=== PATIENT | male | born 1970 | race Caucasian/White ===

== ENCOUNTER 2020-02-28 07:57 | Outpatient (REF) | payer BC, SELFPAY ==
[2020-02-28 19:41] LABS: HCT 46.4 % (40.0-50.0); HGB 15.3 g/dL (13.5-17.5); MCH 28.7 pg (27.0-33.0); MCV 86.9 fL (80-95); MPV 11.1 fL (8.0-11.0); Platelet Count 267 10^3/uL (130-400); RBC 5.34 10^6/uL (4.36-5.78); RDW-SD 38.6 fL
[2020-02-28 20:03] LABS: Anion Gap 5.4 mmol/L (3-11); BUN 13 mg/dL (7-18); CO2 26.6 mmol/L (21.0-32.0); CREATININE 0.96 mg/dL (0.70-1.30); Calcium 8.6 mg/dL (8.5-10.1); Calculated LDL 142 mg/dL (<100); Chloride 107 mmol/L (98-107); Cholesterol 222 mg/dL (<200); Glucose 99 mg/dL (74-106); HDL Cholesterol 40 mg/dL (40-60); Sodium 139 mmol/L (136-145); Triglyceride 203 mg/dL (<150)
[2020-02-28 20:15] LABS: Hemoglobin A1C 5.6 % (<5.7)
== END 2020-02-28 08:17 ==
LOC: NCHCN 07:57
PROVIDERS: PCP Family Medicine; Visit Provider Physician Assistant
DX: I10 Essential (primary) hypertension (principal); R73.09 Other abnormal glucose; E78.5 Hyperlipidemia, unspecified; Z00.00 Encounter for general adult medical examination without abnormal findings
CPT/HCPCS: 80048; 80061; 85027; 83036

== ENCOUNTER 2021-01-27 07:49 | Outpatient (REF) | payer BC, SELFPAY ==
[2021-01-27 20:36] LABS: Hemoglobin A1C 5.1 % (<5.7)
[2021-01-27 20:39] LABS: Anion Gap 8.1 mmol/L (3-11); BUN 9 mg/dL (7-18); CO2 27.9 mmol/L (21.0-32.0); CREATININE 0.9 mg/dL (0.70-1.30); Calcium 8.7 mg/dL (8.5-10.1); Calculated LDL 126 mg/dL (<100); Chloride 107 mmol/L (98-107); Cholesterol 208 mg/dL (<200); Glucose 101 mg/dL (74-106); HDL Cholesterol 39 mg/dL (40-60); Sodium 143 mmol/L (136-145); Triglyceride 217 mg/dL (<150)
== END 2021-01-27 07:50 | disposition home or self-care (01) ==
LOC: NCHCN 07:49
PROVIDERS: PCP Family Medicine; Visit Provider Physician Assistant
DX: I10 Essential (primary) hypertension (principal); E78.5 Hyperlipidemia, unspecified; R73.09 Other abnormal glucose
CPT/HCPCS: 80048; 80061; 83036

== ENCOUNTER 2022-01-26 16:10 | Outpatient (REF) | payer BC, SELFPAY ==
[2022-01-26 15:43] LABS: Hemoglobin A1C 5.3 % (<5.7)
[2022-01-26 15:49] LABS: Anion Gap 11.6 mmol/L (3-11); BUN 9 mg/dL (7-18); CO2 26.4 mmol/L (21.0-32.0); CREATININE 0.8 mg/dL (0.70-1.30); Calcium 8.8 mg/dL (8.5-10.1); Calculated LDL 132 mg/dL (<100); Chloride 105 mmol/L (98-107); Cholesterol 205 mg/dL (<200); Estimated GFR 107.82 (mL/min/1.73m2); Glucose 102 mg/dL (74-106); HDL Cholesterol 46 mg/dL (40-60); Sodium 143 mmol/L (136-145); Triglyceride 135 mg/dL (<150)
[2022-01-27 20:00] LABS: PSA, Screening 0.4 ng/mL (<=3.5)
== END 2022-01-26 16:11 | disposition home or self-care (01) ==
LOC: NCHCN 16:10
PROVIDERS: PCP Physician Assistant; Visit Provider Physician Assistant
DX: R73.09 Other abnormal glucose (principal); E78.5 Hyperlipidemia, unspecified; I10 Essential (primary) hypertension; Z12.5 Encounter for screening for malignant neoplasm of prostate
CPT/HCPCS: 80048; 80061; 84153; 83036

== ENCOUNTER 2022-02-07 06:07 | Day surgery (SDC) | payer BC, SELFPAY ==
--- NOTE | 2022-02-07 00:41 | W.PM.DSUDISC ---
Discharge Plan Disposition Patient Disposition: HOME Condition: Good Discharge Details Attending Provider: Caden Mehta Primary Care Provider: Cholo Juárez Home Meds and New Rx's Prescriptions: Continued lisinopril 20 mg tablet 20 mg PO HS amlodipine 5 mg tablet 1 tab PO HS Label Comments: TAKE ONE TABLET BY MOUTH EVERY DAY Discontinued polyethylene glycol 3350 17 gram/dose powder 238 g PO ONCE Qty: 238 0RF Rx Instructions: take per colonoscopy instructions bisacodyl [Dulcolax (bisacodyl)] 5 mg tablet,delayed release (DR/EC) 5 mg PO ONCE Qty: 4 0RF Rx Instructions: take per colonoscopy instructions Discharge Instructions Instructions: Diverticulosis (DC), Colorectal Polyps (DC) Additional Instructions: 1. If tolerated, consume a soft, low fiber diet for 1-2 days. [address] Do not drive, drink alcohol, operate machinery, make critical decisions, or do activities that require coordination or balance for 24 hours. 3. Because air was put into your colon during the procedure, expelling air from your rectum (passing gas or farting) is normal. 4. You may not have a bowel movement for 1-3 days because of the colonoscopy prep. This is normal. 5. Go directly to the emergency room if you notice any of the following: Develop chills (warm to touch), or if you have a thermometer and your temperature is above 101 Difficulty breathing or difficultly swallowing Persistent vomiting Severe abdominal pain, other than gas cramps Severe chest pain Black, tarry stools Any bleeding ? exceeding one tablespoon 6. Call your physician if the site where your intravenous was started becomes red, swollen, painful, and warm to touch. 7. Your physician has reviewed your pre-procedure medications. Please continue to take those medications as previously ordered. You will be given specific information/education regarding any changes to your medications before leaving. Activity:: Activity as Tolerated Diet:: As Tolerated Discharge Orders Discharge Orders: Discharge Order (Routine); Ordered 02/07/22 Ordered By: Caden Mehta DS: Diagnosis Discharge Diagnosis (1) Colorectal polyps: Status: Acute Asessment and Plan: My office will contact you with biopsy results
--- NOTE | 2022-02-07 00:43 | W.COLOREPORT ---
Colonoscopy Report Date of procedure: 02/07/22 Pre-op diagnosis general: Screening colonoscopy Post-op diagnosis procedure note: other (Diverticulosis, colorectal polyps) Procedure: Screening colonoscopy Surgeon: Caden Mehta Anesthesia Type: General:No Airway Estimated blood loss (mL): 20 Pathology: other (Polyp at 40 cm, polyp at 50 cm) Disposition: same day Indications: Rahul is a 51-year-old male presenting for his first screening colonoscopy Prep: Miralax/Dulcolax Procedure Start Time: 07:55 Procedure End Time: 08:15 Retraction Time: 14 Findings: Polyp at 40 cm, polyp at 50 cm Procedure Description: After the induction of monitored anesthetic care, and with the patient in left lateral decubitus position, I began by performing an external anorectal exam.? Perineum and skin were normal, as was the anal verge.? There was mild evidence of external hemorrhoids with fibrosed skin tags.? Next, I performed a digital rectal exam.? I did not appreciate any abnormal findings.? Next, I advanced a colonoscope into the rectal vault.? I performed retroflexion.? I did not see signs of pathologic internal hemorrhoids.? Using insufflation, I then advanced the colonoscope beyond the rectal folds and into the sigmoid colon before advancing towards the cecum.? There was mild sigmoid diverticulosis. the quality of the prep was adequate.? The scope was noted to be in the cecum by identification of the ileocecal valve and appendiceal orifice.? I then began withdrawing the colonoscope using repeated irrigation as necessary for full evaluation of the colonic mucosa. Around 50 cm from the anal verge I identified a 0.5 cm polyp. ?It appeared sessile in character. ?I was able to remove this with a snare. ?I examined the site, and there was minimal bleeding. Around 40 cm from the anal verge I identified a 1.5 cm polyp. ?It appeared pedunculated in character. ?I was able to remove this with a hot snare. ?I examined the site, and there was minimal bleeding. ?Once this was completed, I continued to withdraw the scope and examine the remainder of the colonic mucosa.?Once this was completed, I continued to withdraw the scope and examine the remainder of the colonic mucosa.?Once the scope was withdrawn to the level of the rectum, great care was taken to examine portions of the rectal folds.? Finally, the scope was withdrawn and the patient was brought to the same-day surgery recovery unit as the anesthetic wore off. ?The findings and instructions were shared with the patient prior to discharge.
[2022-02-07 06:30] VITALS: BP 121/91; PULSE 83; RESP 18; TEMP 36.4; O2SAT 97
[2022-02-07] MEDS: Lactated Ringers 1,000 ML 80 ML IV (06:40)
--- NOTE | 2022-02-07 07:29 | W.ANESPRE ---
General Info Date of Service Date Performed: 02/07/22 Height: 6 ft 2 in Weight: 91.9 kg Body Mass Index (BMI): 25.9 Surgical Procedure: Operation Date: 02/07/22 07:35 Proposed Procedure Side Surgeon p Mor Beltran MD Meds Allergies and Home Medications Allergies Allergy/AdvReac Type Severity Reaction Status Date / Time No Known Allergies Allergy Unverified 02/07/22 06:33 Home Medication Medication Instructions Recorded lisinopril 20 mg tablet 20 mg PO HS 01/17/22 amlodipine 5 mg tablet 1 tab PO HS 02/04/22 Current Visit Medications: Current Medications Generic Name Dose Route Start Last Admin Trade Name Freq PRN Reason Stop Dose Admin Hyoscyamine Sulfate 0.125 mg 02/07/22 00:42 Hyoscyamine 0.125 Mg Sl/Oral/Chew SL DIRECTED PRN Ringer's Solution 1,000 mls @ 80 mls/hr 02/07/22 06:00 02/07/22 06:40 IV 02/07/22 23:59 80 mls/hr INFUSION PHILIPP Administration IV Miscellaneous Supplies 1 each 02/07/22 06:00 Iv Access IV 02/07/22 23:59 DIRECTED PHILIPP Ondansetron HCl 4 mg 02/07/22 00:42 Ondansetron 4 Mg/2 Ml Vial IVP Q4H PRN PRN Nausea / Vomiting Sodium Chloride 0 ml 02/07/22 06:00 Normal Saline Flush 10 Ml Syr IV 02/07/22 23:59 PRN PRN Sodium Chloride 0 ml 02/07/22 06:00 Normal Saline 10 Ml Vial IJ 02/07/22 23:59 DIRECTED PRN Sterile Water 0 ml 02/07/22 06:00 Water,Injection,Sterile 10 Ml Vial IJ 02/07/22 23:59 DIRECTED PRN PFSH Active Problems Active Problems: Problem Status Onset Code Hypertension I10 Medical History Medical History (Updated 02/07/22 @ 06:35 by La Stanley) Hx of essential hypertension Surgical History Surgical History (Updated 02/07/22 @ 06:35 by La Stanley) Hx of inguinal hernia repair left Tobacco Smoking/Tobacco Use Status: Never Alcohol Alcohol Intake: current Alcohol intake frequency: 3 or more drinks per day Alcohol type: beer and hard liquor Substance Use Substance use: Never Substance use type: does not use Details: alcohol: t-2, few drinks Vital Signs and Lab Results Vital Signs Most Recent Vital Signs in EMR: Most Recent Vital Signs Temp Pulse Resp BP Pulse Ox 36.4 C L 83 18 121/91 H 97 02/07/22 06:30 02/07/22 06:30 02/07/22 06:30 02/07/22 06:30 02/07/22 06:30 Lab Results Blood Type / Crossmatch: No Data to Display Complete Blood Count: No Data to Display Complete Metabolic Panel: Sodium 143 mmol/L (136-145) 01/26/22 07:45 Potassium 4.0 mmol/L (3.5-5.1) 01/26/22 07:45 Chloride 105 mmol/L (98-107) 01/26/22 07:45 Carbon Dioxide 26.4 mmol/L (21.0-32.0) 01/26/22 07:45 BUN 9 mg/dL (7-18) 01/26/22 07:45 Creatinine 0.8 mg/dL (0.70-1.30) 01/26/22 07:45 Est GFR (CKD-EPI 2020) 107.82 (mL/min/1.73m2) 01/26/22 07:45 Calcium 8.8 mg/dL (8.5-10.1) 01/26/22 07:45 Glucose 102 mg/dL (74-106) 01/26/22 07:45 Hemoglobin A1c 5.3 % (<5.7) 01/26/22 07:45 Liver Function Panel: No Data to Display Coagulation Panel: No Data to Display Cardiac Panel: No Data to Display Arterial Blood Gas: No Data to Display Venous Blood Gas: No Data to Display Pancreas Panel: No Data to Display Thyroid Panel: No Data to Display Infectious Disease: No Data to Display Blood Cultures: No Data to Display Toxicology Panel: No Data to Display Anesthesia Assessment and Plan Anesthesia History Personal History: No History of Anesthesia Complications Family History: No Family History of Anesthesia Complications Exercise Tolerance Exercise Tolerance: Metabolic Equivalents>4 Pertinent Negatives Pertinent Negatives: No Symptoms of GERD, No Major Cardiovascular Symptoms or Complaints and No Major Pulmonary Symptoms or Complaints Cardiac & Pulmonary Exam Cardiac Exam: Normal S1/S2 Heart Sounds Pulmonary Exam: Clear Bilateral Breath Sounds Implantable Cardiac Device Does patient have a Pacemaker or an ICD?: No Airway Exam Known Difficult Airway: No Mallampati Class: 3 Mouth Opening: Narrow (< 3cm) Thyromental Distance: Greater than 3 cm Facial Hair: Full [place] Neck Range of Motion: Full ROM Neck Circumference: Normal Teeth Condition: Generalized Poor Dentition (Bottom) and Edentulous (Upper) ASA Classification ASA Score: ASA 2 Emergency Case?: No NPO Status NPO Status: NPO Clears >2 hours, Solids >8 hours Anesthesia Plan Resuscitation Status: Full Code Anesthesia Technique: General Anesthesia Airway Planned: Natural Airway Monitors Used: Standard Monitors
[2022-02-07 07:32] VITALS: BMI 25.9
--- NOTE | 2022-02-07 08:06 | BOWEL_PTH ---
PATIENT: Rahul Johnson LOC: [facility] U#:[id number] AGE/SX: 51/M ROOM: RE02/07/[address]: Caden Mehta MD : 1970 BED: DIS: 02/07/2022 SPEC #: [id number] RECD: 02/07/22 12:30 STATUS: CAROLANN REQ #: [id number] ALISIA: 02/07/22 08:[address]: Caden Mehta DEPT: Surgical Specimen RECD BY: Laurita Guerrero ENTERED: 02/07/22 12:31 SP TYPE: Bowel OTHR DR: Cholo Juárez Tissues: 1 - BIOPSY BOWEL 2 - BIOPSY BOWEL Procedures: GROSS AND MICRO LEVEL 4 Comments: [id number]
[2022-02-07 08:22] VITALS: BP 115/72; PULSE 86; RESP 18; TEMP 36.5; O2SAT 96
[2022-02-07 08:36] VITALS: BP 118/84; PULSE 76; RESP 18; TEMP 36.5; O2SAT 96
--- NOTE | 2022-02-07 08:38 | W.ANESPOSTOP ---
Postoperative Evaluation Date, Time and Location Date Performed: 02/07/22 Time Performed: 08:25 Patient Location: Day Surgery Unit Vital Signs Most Recent Imported Vital Signs: Most Recent Vital Signs Temp Pulse Resp BP Pulse Ox 36.5 C 86 18 115/72 96 02/07/22 08:22 02/07/22 08:22 02/07/22 08:22 02/07/22 08:22 02/07/22 08:22 Pain Score Most Recent Pain Score: Most Recent Pain Score Pain Level 0 02/07/22 08:22 Assessment Mental Status: Awake (Alert & Oriented to Patient Baseline) Airway and Respiratory Function: Patent airway with normal (patient baseline) respiratory exam Cardiovascular Function: Hemodynamically Stable Hydration Status: Adequately Hydrated Nausea & Vomiting: No Nausea or Vomiting Pain: Pt. Denies Any Pain Peripheral Nerve Block: Patient did not receive a nerve block
== END 2022-02-07 08:51 | disposition home or self-care (01) ==
PROVIDERS: PCP Physician Assistant; Visit Provider Surgery
PROC: 0DJD8ZZ Inspection of Lower Intestinal Tract, Via Natural or Artificial Opening Endoscopic (ICD-10-PCS; CPT 45378; principal; 2022-02-07 07:30)
DX: Z12.11 Encounter for screening for malignant neoplasm of colon (principal); K63.5 Polyp of colon; K57.30 Diverticulosis of large intestine without perforation or abscess without bleeding
CPT/HCPCS: 45385; 88305

== ENCOUNTER 2022-11-27 15:03 | Emergency (ER) | payer OTHER, SELFPAY ==
[2022-11-27] VITALS (25 sets, daily range): BP systolic 134–164; BP diastolic 86–100; PULSE 79–115; RESP 9–19; TEMP 36.2–38.5; O2SAT 92–98
--- NOTE | 2022-11-27 15:15 | RT.EKG_ITS ---
APPROVED REPORT Exam: Resting ECG Reason for Exam: chest pain Patient Location: E HR:108 bpm ECG Measurements Heart Rate 108 AXIS AK 112 P -14 QRSd 100 QRS 27 QT 325 T 31 QTc 436 Conclusion Sinus tachycardia...rate> 99 nonspecific conduction delay, Normal axis and normal intervals. Borderline LVH. Normal intervals, no evidence of STEMI
--- NOTE | 2022-11-27 15:47 | ED.GENADUL_ITS ---
Discharge Plan Disposition Patient Disposition: Home Condition: Stable Discharge Details Clinical Impression: Fever, Hematuria, Body aches Primary Care Provider: Cholo Juárez ED Provider: Sarah Smith Home Meds and New Rx's Prescriptions: New ondansetron 4 mg tablet,disintegrating 4 mg PO Q8H PRN (Reason: nausea and vomiting) Qty: 7 0RF Continued lisinopril 20 mg tablet 20 mg PO HS amlodipine 5 mg tablet 1 tab PO HS Patient Comments: TAKE ONE TABLET BY MOUTH EVERY DAY Discharge Instructions Instructions: Ondansetron (By mouth), Fever in Adults (ED) Additional Instructions: As we discussed, your labs and imaging are reassuring. This likely viral illness. Do have a tick and Lyme panel pending. Please continue to encourage hydration. May continue with Tylenol and ibuprofen as needed for discomfort. Please use the Zofran as prescribed if you have any recurrent nausea or vomiting. If you are unable to stay hydrated, develop increased pain, develop other new/worsening symptoms please seek care urgently once again. Otherwise, please follow-up with your primary care provider this week for reevaluation. Referrals: Cholo Juárez [Primary Care Provider] - Discharge Data Discharge Date/Time-TO BE ENTERED AT DEPARTURE: 11/27/22 19:34 Medical Decision Making Patient is a pleasant 52-year-old male presenting today with chief complaint of fever, right-sided shoulder pain, chest pain, cough, nausea and general malaise. He reports that the symptoms began 2 days ago. States that initially began with general malaise, some nausea and anorexia. Fevers began more recently. He denies any shortness of breath. States that chest pain is retrosternal and not worsened with exertion. Prior to having this illness, patient is physically active and has not had any exertional chest pain. He denies personal or family history of cardiac disease. No known sick contacts. He feels like there may be something that is stuck in his throat low but that he is having difficulty actually swallowing and this does not seem to make the symptoms worse but rather that is the type of sensation he is feeling in his chest. No change in bowel habits. No change in urinary habits. Notes a small area consistent with bug bite on the right upper arm began last Monday but otherwise no rash. On exam, patient appears fatigued and feels hot to the touch consistent with his current temp. He is tachycardic he does appear dry. Patient's not hypotensive. Lungs are clear. Aside from the tachycardia, normal cardiac exam. He denies any chest pain currently. Normal bowel sounds with no pain elicited. Patient does drink about 4 drinks per night, has not had any since last . Is holding emesis bag and endorses some nausea. We will hydrate the patient, give fluids, acetaminophen and Zofran. Concerned about potential pancreatitis, viral URI including COVID, other viral illness, pneumonia. I find ACS less likely but will certainly obtain EKG and troponin. He does not have risk factors for endocarditis. No positional changes of discomfort to suggest pericarditis. Labs reviewed. No leukocytosis. Stable H&H. Lactates within normal limits. CMP concerning for slightly elevated glucose but no acute abnormalities. Troponins negative x2. Lipase within normal limits. Urinalysis is concerning for moderate blood, ketones, elevated urobilinogen. His LFTs are normal, he has no RUQ pain to suggest acute liver pathology. He is not immunocompromised. COVID negative. FINDINGS: Lungs: Unremarkable. No consolidation. Pleural spaces: Unremarkable. No pleural effusion. No pneumothorax. Heart/Mediastinum: Unremarkable. No cardiomegaly. Bones/joints: Unremarkable. IMPRESSION: No acute findings. Discussed with patient. He is feeling signficantly bettern after hydration and temp down. He is hydrating orally. We discussed differentials, likely viral illness with fever causing most significant symptoms. Encouraged supportive care. Encouraged close f/u with PCP. Strict return precautions discussed. All of their questions and concerns were addressed, they are in agreement with this plan. HPI General Date/Time Provider Initiated Documentation: 11/27/22 15:47 . Limitations to Documentation: no limitations . Information obtained by: patient, family and RN notes reviewed . History of Present Illness 52 year old M presents to the emergency department with the chief complaint of fevers, chills, malaise, body aches, CP, described as moderate, Quality is described as aching (diffuse body aches, maximal in right shoulder, chest pain), Patient started experiencing this day(s) and it has been constant. No relieving factors improve symptom(s), No exacerbating factors reported . Patient notes chest pain, cough, diaphoresis, fever/chills, headaches, loss of appetite and malaise; denies nausea/vomiting, rash and shortness of breath. Patient did receive the following treatments prior to arrival, none Related Data Home Medications Medication Instructions Recorded Confirmed lisinopril 20 mg tablet 20 mg PO HS 01/17/22 02/07/22 amlodipine 5 mg tablet 1 tab PO HS 02/04/22 02/07/22 ondansetron 4 mg disintegrating 4 mg PO Q8H PRN nausea and 11/27/22 tablet vomiting #7 tabs Previous Rx's Medication Instructions Recorded ondansetron 4 mg disintegrating 4 mg PO Q8H PRN nausea and 11/27/22 tablet vomiting #7 tabs Allergies Allergy/AdvReac Type Severity Reaction Status Date / Time No Known Allergies Allergy Unverified 02/07/22 06:33 General Stated Complaint: GenMedical MEG: 3 Review of Systems Constitutional Constitutional: Reports as per HPI Eyes Eyes: Denies change in vision ENT Ears, Nose, Mouth, and Throat: Denies dizziness Cardiovascular Cardiovascular: Reports as per HPI Respiratory Respiratory: Reports as per HPI, Denies chest congestion, Denies pain on inspiration and Denies pain with cough Gastrointestinal Gastrointestinal: Reports as per HPI, Denies abdominal pain, Denies diarrhea, Denies nausea and Denies vomiting Genitourinary Genitourinary: Denies system reviewed and no additional complaints, except as documented (denies change in urinary habits) Musculoskeletal Musculoskeletal: Reports as per HPI and Denies back pain Integumentary/Breasts Skin/Breast: Reports as per HPI and Denies rash Neurologic Neurologic: Reports as per HPI and Denies dizziness PFSH All Active Problems (Updated 11/27/22 @ 19:27 by ARTIE Warren) Fever (Acute) Hematuria (Acute) Body aches (Acute) Colorectal polyps (Acute) Hypertension (Chronic) Medical History (Updated 11/27/22 @ 19:27 by ARTIE Warren) Hx of essential hypertension Surgical History (Updated 02/07/22 @ 06:35 by La Stanley) Hx of inguinal hernia repair left Family History (Updated 01/18/22 @ 08:37 by Benita Beltran MD) Mother Stroke Father Emphysema lung Social History (Updated 01/18/22 @ 08:38 by Benita Beltran MD) Smoking/Tobacco Use Status: Never Smoking risk assessment performed?: Yes Alcohol Intake: current Alcohol Intake frequency: 3 or more drinks per day Alcohol type: beer and hard liquor Drug use: Never Substance use type: does not use Details: alcohol: t-2, few drinks Do you feel safe at home: Yes Do you feel safe in your relationship?: Yes Exam Const General: cooperative, no acute distress, well developed and ill appearing acutely Nutritional Appearance: average body habitus and well nourished Orientation: alert, awake and oriented x3 HENMT Head: normal to inspection Ears: hearing grossly normal bilaterally, external ears normal and TM's normal bilaterally Face and sinus: normal facial exam and sinuses nontender Mouth: mucous membranes dry Throat: posterior oropharynx normal, tonsils normal and uvula midline Chest Chest: normal inspection of the chest, normal palpation of entire chest wall and no crepitus Resp Effort & Inspection: normal respiratory effort, able to speak in complete sentences and no respiratory distress Auscultation: clear to auscultation bilaterally, no rales, no rhonchi and no wheezes Cardio Rate: tachycardic Rhythm: regular rhythm Heart Sounds: S1 normal and S2 normal GI Inspection: normal to inspection, no edema and non-distended Palpation: soft, no hepatosplenomegaly, not firm, no guarding, not rigid and nontender Auscultation: normal bowel sounds Back/Spine/Pelvis Back: no CVA tenderness Thoracic/Lumbar Spine: thoracic and lumbar spine normal to inspection Skin General skin exam: no rashes or lesions noted Trauma: no lacerations or abrasions Neuro General: patient alert, patient awake and patient oriented x3 Cognition: normal cognition Speech: speech normal Gait: normal gait Extrem General: normal to inspection, capillary refill normal, no pedal edema, no calf tenderness and normal gait Course Vital Signs Vital signs: Vital Signs Temperature 38.5 C H 11/27/22 15:12 Pulse 114 H 11/27/22 15:12 Respiratory Rate 18 11/27/22 15:12 Blood Pressure 153/97 H 11/27/22 15:12 Pulse Oximetry 98 11/27/22 15:12 Temperature 38.5 C H 11/27/22 15:12 Temperature Source Tympanic 11/27/22 15:12 Pulse 114 H 11/27/22 15:12 Respiratory Rate 18 11/27/22 15:12 Blood Pressure 153/97 H 11/27/22 15:12 Pulse Oximetry 98 11/27/22 15:12 Oxygen Delivery Method Room Air 11/27/22 15:12 Oxygen Flow Rate 0 11/27/22 15:12
[2022-11-27] MEDS: Lactated Ringers 1,000 ML 1000 ML IV (16:05)
[2022-11-27] MEDS: Ondansetron 4 MG/2 ML VIAL IVP (16:08)
[2022-11-27] MEDS: ACETAMINOPHEN 1,000 MG/100 ML BTL 400 MG IVPB (16:11)
[2022-11-27 16:15] LABS: Lactate 0.9 mmol/L (0.6-1.4)
[2022-11-27 16:17] LABS: Abs Immature Grans 0.02 10^3/uL (0.0-0.06); Absolute Basophil Count 0.03 10^3/uL (0.0-0.2); Absolute Lymphocyte Count 0.27 10^3/uL (1.2-3.4); Absolute Monocyte Count 0.82 10^3/uL (0.1-0.8); Absolute Neutrophil Count 5.96 10^3/uL (1.2-6.7); Basophils % 0.4; HCT 47.9 % (40.0-50.0); HGB 16.2 g/dL (13.5-17.5); Immature Grans % 0.3; Lymphocytes % 3.8; MCHC 33.8 % (32.0-36.0); MCV 86 fL (80-95); MPV 10.1 fL (8.0-11.0); Monocytes % 11.5; Platelet Count 199 10^3/uL (130-400); RBC 5.59 10^6/uL (4.36-5.78); RDW 12.9 % (11.8-14.1); RDW-SD 40.5 fL
[2022-11-27 16:38] LABS: ALT 38 U/L (16-63); AST 30 U/L (15-37); Albumin 3.2 g/dL (3.4-5.0); Alkaline Phosphatase 103 U/L (46-116); Anion Gap 9.7 mmol/L (3-11); BUN 14 mg/dL (7-18); Bilirubin, Total 1.2 mg/dL (0.2-1.0); CO2 25.3 mmol/L (21.0-32.0); CREATININE 0.9 mg/dL (0.70-1.30); Calcium 8.3 mg/dL (8.5-10.1); Chloride 99 mmol/L (98-107); Glucose 125 mg/dL (74-106); Lipase 20 U/L (16-77); Magnesium 1.8 mg/dL (1.8-2.4); Potassium 3.5 mmol/L (3.5-5.1); Sodium 134 mmol/L (136-145); Total Protein 7.3 g/dL (6.4-8.2); Troponin I < 50 ng/L (<or=60)
--- NOTE | 2022-11-27 17:20 | DI.RAD_ITS ---
Exam(s) XR PORTABLE CHEST AP EXAM: XR PORTABLE CHEST AP CLINICAL HISTORY: fever, cough TECHNIQUE: 2D digital imaging was performed. COMPARISON: No exams were available for comparison FINDINGS: LUNGS: Suboptimally inflated but clear. No pleural abnormality seen. HEART: Normal size. AORTA: Normal diameter. Mildly ectatic. BONES: Unremarkable for age. Soft tissues: Unremarkable. IMPRESSION: No acute findings. DATA REPOSITORY: RADIATION DOSE DELIVERED:
--- NOTE | 2022-11-27 17:35 | DI.VRAD_ITS ---
PROCEDURE INFORMATION: Exam: XR Chest Exam date and time: 11/27/2022 5:02 PM Age: 52 years old Clinical indication: Other: Fever, cough TECHNIQUE: Imaging protocol: Radiologic exam of the chest. Views: 1 view. COMPARISON: No relevant prior studies available. FINDINGS: Lungs: Unremarkable. No consolidation. Pleural spaces: Unremarkable. No pleural effusion. No pneumothorax. Heart/Mediastinum: Unremarkable. No cardiomegaly. Bones/joints: Unremarkable. IMPRESSION: No acute findings. Dictated and Authenticated by: Isael Garza MD. Ordering:REJI Smith MD
[2022-11-27 18:23] LABS: Bilirubin Small (Negative); Blood Moderate (Negative); Clarity Clear (Clear); Glucose 100 mg/dL (Negative); Ketones 40 mg/dL (Negative); Leukocyte Esterase Negative (Negative); Nitrite Negative (Negative); Specific Gravity 1.025 (1.005-1.025); Urobilinogen >=8.0 mg/dL (Up to 0.2)
[2022-11-27 18:38] LABS: Bacteria Negative HPF (Negative); C & S Indicated? No; Crystals Negative HPF (Negative); Epithelial Cells Rare HPF (Negative); Mucus Heavy (Negative); WBC 0-2 HPF (0-5)
[2022-11-27 19:19] LABS: Troponin I < 50 ng/L (<or=60)
[2022-11-27] MEDS: Ondansetron O.D.T. 4 MG TABEF, 3 TABS/BTL PO (19:29)
[2022-11-29 10:55] LABS: Lyme Ab w Rflx to Lyme Confirm Negative (Negative)
[2022-12-01 08:49] LABS: Anaplasma phagocytophilum Negative (Negative); B. miyamotoi PCR Negative (Negative); Babesia divergens/MO-1 Negative (Negative); Babesia duncani Negative (Negative); Babesia microti Negative (Negative); Ehrlichia chaffeensis Negative (Negative); Ehrlichia ewingii/canis Negative (Negative); Ehrlichia muris eauclairensis Negative (Negative)
== END 2022-11-27 19:34 | disposition home or self-care (01) ==
PROVIDERS: Emergency Provider Physician Assistant; PCP Physician Assistant
DX: R50.9 Fever, unspecified (principal); R31.9 Hematuria, unspecified; R52 Pain, unspecified
CPT/HCPCS: 80053; 83690; 87426; 87798; 93005; 96361; 96374; 96375; 99284; 71045; 81003; 81015; 83605; 83735; 84484; 85025; 86618; 93010; J0131; J2405

== ENCOUNTER 2023-02-17 15:54 | Outpatient (REF) | payer OTHER, SELFPAY ==
[2023-02-17 15:50] LABS: ALT 25 U/L (16-63); AST 21 U/L (15-37); Alkaline Phosphatase 82 U/L (46-116); Anion Gap 11.6 mmol/L (3-11); BUN 11 mg/dL (7-18); Bilirubin, Total 0.4 mg/dL (0.2-1.0); CO2 26.4 mmol/L (21.0-32.0); CREATININE 0.8 mg/dL (0.70-1.30); Calculated LDL 121 mg/dL (<100); Chloride 105 mmol/L (98-107); Cholesterol 190 mg/dL (<200); Estimated GFR 106.48 (mL/min/1.73m2); Glucose 99 mg/dL (74-106); HDL Cholesterol 49 mg/dL (40-60); Sodium 143 mmol/L (136-145); Total Protein 7.5 g/dL (6.4-8.2); Triglyceride 103 mg/dL (<150)
[2023-02-17 23:32] LABS: PSA, Screening 0.3 ng/mL (<=3.5)
== END 2023-02-17 15:55 | disposition home or self-care (01) ==
LOC: NCHCN 15:54
PROVIDERS: PCP Physician Assistant; Visit Provider Physician Assistant
DX: Z12.5 Encounter for screening for malignant neoplasm of prostate (principal); I10 Essential (primary) hypertension; E78.5 Hyperlipidemia, unspecified
CPT/HCPCS: 80053; 80061; 84153

== ENCOUNTER 2023-04-18 06:13 | Day surgery (SDC) | payer OTHER, SELFPAY ==
[2023-04-18] VITALS (8 sets, daily range): BP systolic 105–152; BP diastolic 68–89; PULSE 66–79; RESP 16–171; TEMP 36.3–36.6; O2SAT 94–959; BMI 26.4
[2023-04-18] MEDS: Acetaminophen 500 MG TAB 1000 MG PO (06:48)
[2023-04-18] MEDS: Gabapentin 300 MG CAP 600 MG PO (06:49)
[2023-04-18] MEDS: Lactated Ringers 1,000 ML 80 ML IV (06:49)
[2023-04-18] MEDS: Celecoxib 200 MG CAP PO (06:49)
--- NOTE | 2023-04-18 07:32 | PGE_ITS ---
Date of Service Date of service: 04/18/23 Time of Service: 07:32 Assessment and Plan Assessment and plan (1) Umbilical hernia: Status: Acute Qualifiers: Obstruction and gangrene presence: without obstruction or gangrene Qualified Code(s): K42.9 - Umbilical hernia without obstruction or gangrene (2) Right inguinal hernia: Status: Acute (3) Hypertension: Status: Chronic (4) Hyperlipidemia: Status: Acute Subjective Subjective Interval history since last seen: Patient is here today for umbilical hernia and right inguinal hernia repair.??? They not having any chest pain or shortness of breath, currently.? They are not experiencing any fever or chills.? They deny any productive cough or upper re spiratory tract infection signs or symptoms.? They are not having abdominal pain, or nausea and vomiting.? They have not had any changes in medications, past medical history or past surgical history since previously being seen in the office. They have not had any accidents or have been in the ER since the clinic pre-operative evaluation. ??I reviewed the procedure with the patient today, including risks and benefits of the procedure, and what they could expect at home for recovery.? I discussed the nature of inguinal hernias with the pt and how they form, and consequences of incarceration.? ? ?I discussed the surgery in detail and the complications related to the surgery and the anesthesia.? I do recommend that the pt have a nerve block for postop pain control.? We also discussed multi- modality pain management.? Pt. expressed understanding; all questions were answered to the patient satisfaction and they do wish to proceed with surgery.? Patient was given an educational booklet & and a copy of the postop instructions and expressed understanding of how to care for themselves after surgery. Risks of the surgery include but are not limited to: Bleeding/infection/pneumonia/damage to blood vessels or bladder or?bowels/blood clots or PE/chronic pain/urinary retention/chronic numbness/reoccurrence/reaction to mesh requiring removal/damage to testicle or sterility/complications of anesthesia.?We also discussed the possibility of postop urinary retention or bruising. ?The procedure will be done with abx and under sterile conditions. This is an outpt day surgery.? ??The pt requires a ride home from surgery and someone to stay with the pt for 24 hrs after anesthesia.? No lifting over 5 pounds for 2-3 weeks after surgery.? Also take Miralax postop to avoid constipation. pt was marked in preop All questions are answered to the patient?s satisfaction today, and they are stable to proceed with the proposed procedure. Objective Last Vital Signs Temp 36.4 C L 04/18/23 06:14 Pulse 79 04/18/23 06:14 Resp 16 04/18/23 06:14 BP 152/83 H 04/18/23 06:14 Pulse Ox 97 04/18/23 06:14 Time Spent with Patient Time Spent with Patient: <25 minutes Time was spent: preparing to see the patient(eg.review tests), obtaining and/or reviewing separately otained hiistory, ordering medications,tests, procedures, referring, communicating with other health acute care physical therapist, indepentently interpreting results, counseling the patient and care coordination
--- NOTE | 2023-04-18 07:44 | W.ANESPRE ---
General Info Date of Service Date Performed: 04/18/23 Height: 6 ft 2 in Weight: 93.5 kg Body Mass Index (BMI): 26.4 Surgical Procedure: Operation Date: 04/18/23 07:40 Proposed Procedure Side Surgeon p Herniorrhaphy Inguinal/Umbilical Repair w/Mesh Right Jo Iglesias DO Meds Allergies and Home Medications Allergies Allergy/AdvReac Type Severity Reaction Status Date / Time No Known Allergies Allergy Verified 04/18/23 06:26 Home Medication Medication Instructions Recorded lisinopril 20 mg tablet 20 mg PO HS 01/17/22 amlodipine 5 mg tablet 1 tab PO HS 02/04/22 Current Visit Medications: Current Medications Generic Name Dose Route Start Last Admin Trade Name Freq PRN Reason Stop Dose Admin Acetaminophen 1,000 mg 04/18/23 06:00 04/18/23 06:48 Acetaminophen 500 Mg Tab PO 04/18/23 16:00 1,000 mg PREOP PHILIPP Administration Celecoxib 200 mg 04/18/23 06:00 04/18/23 06:49 Celecoxib 200 Mg Cap PO 04/18/23 16:00 200 mg PREOP PHILIPP Administration Droperidol 0.625 mg 04/18/23 07:28 Droperidol 5 Mg/2 Ml Vial IVP 05/18/23 07:27 DIRECTED PRN Nausea Ephedrine Sulfate 0 mg 04/18/23 07:28 Ephedrine 25 Mg/5 Ml Syringe IVP 05/18/23 07:27 DIRECTED PRN Fentanyl 0 mcg 04/18/23 07:28 Fentanyl 100 Mcg/2 Ml Vial IVP 05/18/23 07:27 DIRECTED PRN Gabapentin 600 mg 04/18/23 06:00 04/18/23 06:49 Gabapentin 300 Mg Cap PO 04/18/23 16:00 600 mg PREOP PHILIPP Administration Hydromorphone HCl 0 mg 04/18/23 07:28 Hydromorphone 2 Mg/Ml Syr IVP 05/18/23 07:27 DIRECTED PRN Ringer's Solution 1,000 mls @ 80 mls/hr 04/18/23 06:00 04/18/23 06:49 IV 05/14/23 23:59 80 mls/hr INFUSION PHILIPP Administration Cefazolin Sodium/Dextrose 2 gm in 50 mls @ 100 mls/hr 04/18/23 06:00 Ancef Duplex IVPB 04/18/23 16:00 PREOP PHILIPP IV Miscellaneous Supplies 1 each 04/18/23 06:00 Iv Access IV 05/14/23 23:59 DIRECTED PHILIPP Naloxone HCl 0 mg 04/18/23 07:28 Naloxone 0.4 Mg/Ml Vial IVP 05/18/23 07:27 PRN PRN Sodium Chloride 0 ml 04/18/23 06:00 Normal Saline Flush 10 Ml Syr IV 05/14/23 23:59 PRN PRN Sodium Chloride 0 ml 04/18/23 06:00 Normal Saline 10 Ml Vial IJ 05/14/23 23:59 DIRECTED PRN Sterile Water 0 ml 04/18/23 06:00 Water,Injection,Sterile 10 Ml Vial IJ 05/14/23 23:59 DIRECTED PRN PFSH Active Problems Active Problems: Problem Status Onset Code Umbilical hernia K42.9 Hyperlipidemia E78.5 Lyme disease A69.20 Right inguinal hernia K40.90 Colorectal polyps K63.5, K62.1 Hypertension I10 Medical History Medical History History of colon polyps (~02/07/22) Low back pain Neck pain Hx of essential hypertension Medical History Comments:: 04/04 BP reading pt. stated he had just coming into the office right before a stressful event, so he was ramped up he said his BP normally runs in the 130's 140's over 80's range Surgical History Surgical History S/P colonoscopy (~2021) Hx of inguinal hernia repair left Tobacco Smoking/Tobacco Use Status: Never Alcohol Alcohol Intake: current Alcohol intake frequency: 3 or more drinks per day Alcohol type: beer and hard liquor Substance Use Substance use: Never Substance use type: does not use Vital Signs and Lab Results Vital Signs Most Recent Vital Signs in EMR: Most Recent Vital Signs Temp Pulse Resp BP Pulse Ox 36.4 C L 79 16 152/83 H 97 04/18/23 06:14 04/18/23 06:14 04/18/23 06:14 04/18/23 06:14 04/18/23 06:14 Lab Results Blood Type / Crossmatch: No Data to Display Complete Blood Count: No Data to Display Complete Metabolic Panel: No Data to Display Liver Function Panel: No Data to Display Coagulation Panel: No Data to Display Cardiac Panel: No Data to Display Arterial Blood Gas: No Data to Display Venous Blood Gas: No Data to Display Pancreas Panel: No Data to Display Thyroid Panel: No Data to Display Infectious Disease: No Data to Display Blood Cultures: No Data to Display Toxicology Panel: No Data to Display Anesthesia Assessment and Plan Anesthesia History Personal History: No History of Anesthesia Complications Family History: No Family History of Anesthesia Complications Exercise Tolerance Exercise Tolerance: Metabolic Equivalents>4 Pertinent Negatives Pertinent Negatives: No Symptoms of GERD Cardiac & Pulmonary Exam Cardiac Exam: Normal S1/S2 Heart Sounds Pulmonary Exam: Clear Bilateral Breath Sounds Implantable Cardiac Device Does patient have a Pacemaker or an ICD?: No Airway Exam Known Difficult Airway: No Mallampati Class: 3 Mouth Opening: Narrow (< 3cm) Thyromental Distance: Greater than 3 cm Neck Range of Motion: Full ROM Neck Circumference: Normal Teeth Condition: Generalized Poor Dentition (Bottom) and Edentulous (Upper) ASA Classification ASA Score: ASA 2 Emergency Case?: No NPO Status NPO Status: NPO Clears >2 hours, Solids >8 hours Anesthesia Plan Resuscitation Status: Full Code Anesthesia Technique: General Anesthesia Airway Planned: Endotracheal Tube Monitors Used: Standard Monitors
[2023-04-18] MEDS: ceFAZolin 2 GM/50 ML BAG IVPB (07:57)
--- NOTE | 2023-04-18 08:29 | W.ANESNERVE ---
Nerve Block Single Injection Procedure Date and Time Date Performed: 04/18/23 Procedure Start: 08:04 Location Where Procedure Performed Procedure Location: Operating Room Procedure Stop: 08:08 Reason Performed: Postoperative Analgesia Requesting Provider: Jo Iglesias Timeout Performed Timeout Performed: Yes Monitoring Used ECG, Blood Pressure, SpO2, ETCO2 and See EMR for corresponding vital signs Sterility Sterility: Hand Hygiene, Surgical Cap, Surgical Mask, Sterile Gloves, Eye Protection and Chlorhexidine Sedation Given During Procedure Sedation Given (Indicate Dose Given): Other: Medication/Route/Dose:: GETA Patient Mental Status Patient Mental Status: Performed under general anesthesia Nerve Block 1st Nerve Block: Laterality: Right Block Type: TAP Unilateral Ultrasound Image Saved?: Yes Needle / Catheter Used: 100mm SonoPlex II Local Anesthetic Bolus (Indicate Dose Given): Injected in 3-5ml increments after negative blood aspiration, Bupivacaine 0.25% Dose:: 10cc/0.25% (25mg) and Exparel Dose:: 10cc/1.3% (133mg) Additives (Indicate Dose Given): Epinephrine to make 1:400,000 (2.5mcg/ml) Dose:: 50mcg (1:400,000) / 20cc Ultrasound: Sterile probe cover and gel used Nerve Stimulator: Not Used Paresthesia: None Procedure Tolerated: No Complications and Patient tolerated well Procedure Outcome: Successful Performed By: Eros Meyer 2nd Nerve Block: Laterality: Bilateral Block Type: Rectus Sheath (Bilateral) Ultrasound Image Saved?: Yes Needle / Catheter Used: 100mm SonoPlex II Local Anesthetic Bolus (Indicate Dose Given): Injected in 3-5ml increments after negative blood aspiration, Bupivacaine 0.25% Dose:: 10cc/0.25% (25mg) and Exparel Dose:: 10cc/1.3% (133mg) Additives (Indicate Dose Given): Epinephrine to make 1:400,000 (2.5mcg/ml) Dose:: 50mcg (1:400,000) / 20cc Ultrasound: Sterile probe cover and gel used Nerve Stimulator: Not Used Paresthesia: None Procedure Tolerated: No Complications and Patient tolerated well Procedure Outcome: Successful Performed By: Eros Meyer
[2023-04-18] MEDS: Bupivacaine 0.25% Pres-Free 30 ML VIAL (09:34)
--- NOTE | 2023-04-18 10:00 | PDOC.DSDIS_ITS ---
Date of service: 04/18/23 Time of Service: 10:03 Discharge Plan Disposition Patient Disposition: Home Condition: Good Discharge Details Reason For Visit: open right inguinal and umbilical hernia repairs Attending Provider: Jo Iglesias Primary Care Provider: Cholo Juárez Home Meds and New Rx's Prescriptions: New celecoxib [Celebrex] 200 mg capsule 200 mg PO Q12H PRN 14 Days Qty: 30 0RF tramadol 50 mg tablet 50 mg PO Q6H PRN (Reason: pain (scale score 7-10)) Qty: 14 0RF Continued lisinopril 20 mg tablet 20 mg PO HS amlodipine 5 mg tablet 1 tab PO HS Patient Comments: TAKE ONE TABLET BY MOUTH EVERY DAY Discharge Instructions Additional Instructions: Dr. Iglesias HERNIA REPAIR ? POSTOPERATIVE INSTRUCTIONS Patients who have this type of surgery can usually be expected to return to work within two weeks and have minimal amounts of discomfort. ? ACTIVITY: The day of surgery should be spent resting. However, you can be up for short periods of time, I.E., going to the bathroom or kitchen. Avoid lifting or straining. On the day following surgery, you can be up and about as desired. ? LIFTING: Restrict your lifting to no more than five (5) pounds for two weeks after surgery. ??We will decide when you are done with restrictions and when you can return to work, at your follow-up appointment.? No sexual activity for two weeks.? ? DIET: There are no dietary restrictions following surgery. However, you may want to start with small amounts of liquids to avoid nausea the day of surgery. ? INCISION CARE: You will notice purple skin glue closing the incision.? Do not peel this off- it will wear off on its own.? After 24 hours you may shower. The dressing may be replaced for comfort, but is not necessary. ?An ice bag may be applied to the incision for 72 hours following surgery. ? SIGNS OF INFECTION: It is not unusual to have some black and blue discoloration of the skin around the incision, but also scrotum and penis.? ?It will slowly disappear. If you have any increased redness, drainage, fever (above 100 degrees), please contact your doctor for an examination. ? DISCOMFORT: You may expect to have some mild discomfort at the incision sight. If severe pain develops you should contact your doctor for further instructions. ? URINATION: Patients who have surgery occasionally have problems urinating. If you experience problems and are not able to urinate within 6 hours following your surgery, please call your doctor immediately or go to your nearest Emergency Room for evaluation. ? DRIVING: NO driving for three (3) days after surgery, or if you are still taking narcotic pain medication.? ? MEDICATIONS: Alternate Tylenol 1000mg by mouth every 8 hours and Ibuprofen 600mg every 6 hoursOR Celebrex 200mg every 12 hrs. ?Make sure you take ibuprofen or celebrex with food and not on an empty stomach. ?Take the Tylenol and ibuprofen continuously for the first 72hrs- not just when you have pain.? Use the tramadol for breakthrough pain/pain >7.? Use ICE!?? Twenty minutes on, and then off, continuously for the first 72hours. If you are taking narcotic pain medication, follow the instructions on the label and do not drive. Pain medications can make you very constipated. Make sure you are moving your bowels daily. If not, take Miralax or Milk of Magnesia.?? Anesthesia makes you very constipated.? Take a dose of milk of magnesia the morning after surgery. ? REPORT: Unusual swelling, severe pain, unresolved nausea, signs of infection, or difficulty in urination to your surgeon. Follow up in clinic with Dr. Iglesias in 2 weeks.? [phone] Activity:: see above Remove Dressings/Wound Care:: 24 hours Shower/Bathe:: 24 hours Diet:: As Tolerated Discharge Orders Discharge Orders: Discharge Order (Routine); Ordered 04/18/23 Ordered By: Jo Iglesias DS: Diagnosis Discharge Diagnosis (1) Umbilical hernia: Status: Acute (2) Right inguinal hernia: Status: Acute Asessment and Plan: The patient is doing well post-op from their umbilical and right inguinal open hernia repair w/ mesh. ? They are having no nausea or vomiting. They are tolerating liquids and a snack. The pt is not having any chest pain or SOB.? Their pain is adequately controlled. They have been able to urinate.? ?HEENT:? no eye pain/drainage/redness/swelling. Mild sore throat ?Cardio- NSR, no chest pain, BP stable- see VS record ?Pulm: no sob or productive cough. No hemoptysis ?Incision- dressing is c/d/i w/ no excessive bleeding or drainage ?I discussed with the patient the findings at the time of surgery and the patien t?s progress. ?We reviewed expectations at home; what the patient could expect for recovery time, and in the post-operative period.? We discussed the importance of walking to avoid blood clots and pneumonia.? We discussed and reviewed the patient's post-operative wound care and dressing needs.?? We reviewed their step-wilcox pain management plan, Rx called to the pharmacy of their choice.? We reviewed activity and limitations-see discharge instructions. We reviewed warning signs, and when to seek medical attention- see d/c instructions.?? Patient was given a postoperative follow-up appointment. Patient verbalized understanding of their postoperative instructions, how do to take care of themselves and their incision, and the pain management plan. Please see discharge instructions.? (3) Hypertension: Status: Chronic (4) Hyperlipidemia: Status: Acute
--- NOTE | 2023-04-18 10:01 | W.PM.OP ---
Date of service: 04/18/23 Time of Service: 10:01 Operative Note Operative Note DATE OF PROCEDURE: 04/18/23 PRE-OP DIAGNOSIS: umbilical and right inguinal hernia PROCEDURE: open umbilical and right inguinal hernia w/ mesh SURGEON: Jo Mcmanus EDGER LINER: Jing Hsieh ANESTHESIA TYPE: Local By Surgeon, General LMA/ETT and Primary Nerve Block Refer to Anesthesia Record ESTIMATED BLOOD LOSS: 10 PATHOLOGY: none sent COMPLICATIONS: None Patient was transported to: PACU Patient's condition: stable Procedure Description: INDICATIONS: The pt is here today for surgery regarding symptomatic umbilical and right inguinal hernia that has failed outpatient conservative medical management and he is here today for repair. Informed consent was obtained, explaining risks and benefits of the procedure including but not limited to bleeding, infection, pneumonia, blood clots, chronic pain, chronic numbness, damage to testicle resulting in removal, recurrence of hernia, reaction to Mesh necessitating removal, and other unforetold complications, and complications of anesthesia-which were addressed by the CRACKING MACHINE OPERATOR. The patient is marked in preOp prior to the procedure DESCRIPTION OF PROCEDURE: The patient was brought to the operating suite and placed in supine position. Anesthesia was administered per the Department of Anesthesia. Nerve block is done per the Dept of anesthesia w/ experel.? ?Patient prepped and draped in the usual sterile fashion using DuraPrep scrub solution. IV antibiotics were administered. Pause for the cause was done. 20cc of .25% Marcaine is used for local anesthetic. A 1-inch incision was made in the inferiorly to the umbilicus. Umbilicus was dissected off the fascia. The surrounding tissue is dissected off the fascia.? Omentum is protruding through the defect. This was returned to the abdomen. It is not infarcted. A small Kerlix patch was then placed in the defect, the defect was closed, over sewn with 2-0 vicryl and was copiously irrigated. An additional 10cc of Experel is is instilled into the wound at the time of closure. Deep tissue was approximated with 3-0 Vicryl and skin was approximated with 4-0 Monocryl in a running subcuticular fashion. Skin glue was applied. The patient tolerated the procedure well without complications and was transferred to recovery room in stable condition. DESCRIPTION OF PROCEDURE:? The pt is then brought to the operative room suite. Anesthesia was administered per the Department of Anesthesia. ?A nerve block was performed by anesthesia under US guidance. The patient was prepped and draped in the usual sterile fashion using ChloraPrep scrub solution. Pause for the cause was done. He did receive preop IV antibiotics, and 30 mL of .25% Marcaine w/ epinephrine was used for local anesthetization. A #12 blade was used to make an incision over the external ring. Electrocautery used to provide hemostasis and dissect down to the fascia. The fascia was pretty much obliterated and there was nothing to open. The cord is elevated. The nerve was not identified. There is a cord lipomas.? Electro-cautery is used to provide hemostasis. A [place] drain was placed around the cord to assist in mobilization. The cord was explored. ?There was is hernia sac on the cord. There is no direct hernia pushing through the floor. The hernia sac is dissected off the cord using a combination of blunt dissection and electrocautery.? Electrocautery is used to provide hemostasis.?? There are no contents within the hernia sac.? The hernia sac is than inverted and returned to the abdominal cavity.? A large size plug is than inserted into the defect through the internal ring, and over sewn to tighten up the ring with 2-0 vicryl.? Please see RN notes from [employer] mesh patch/plug.? The cord structures are still able to freely move through the ring itself.? The patch was then placed onto the floor, and using 2-0 Vicryl, sewn into the pubic tubercle and the shelving portions of the inguinal ligament, in the standard Lichenstein fashion.? ?The tails of the mesh are brought around the cord, sewn together w/ 2-0 Vicryl, and tucked under the external oblique.? The wound was copiously irrigated. There was no bleeding noted. The drain was removed. All structures are returned to normal anatomical position. The nerve is not sewn into the mesh, nor caught up in any sutures. The external oblique is re-approximated using 2-0 vicryl in a running fashion. ?Deep tissue was approximated with 3-0 Vicryl in a running fashion, and skin was approximated with 4-0 Monocryl in a running subcuticular fashion. Skin glue and sterile dressings are applied. The patient tolerated the procedure without complications to recovery in stable condition. JO MCMANUS, DO
--- NOTE | 2023-04-18 11:58 | W.ANESPOSTOP ---
Postoperative Evaluation Date, Time and Location Date Performed: 04/18/23 Time Performed: 11:58 Patient Location: Day Surgery Unit Vital Signs Most Recent Imported Vital Signs: Most Recent Vital Signs Temp Pulse Resp BP Pulse Ox 36.3 C L 71 16 126/85 97 04/18/23 11:32 04/18/23 11:32 04/18/23 11:32 04/18/23 11:32 04/18/23 11:32 Pain Score Most Recent Pain Score: Most Recent Pain Score Pain Level 3 04/18/23 11:32 Assessment Mental Status: Awake (Alert & Oriented to Patient Baseline) Airway and Respiratory Function: Patent airway with normal (patient baseline) respiratory exam Cardiovascular Function: Hemodynamically Stable Hydration Status: Adequately Hydrated Nausea & Vomiting: No Nausea or Vomiting Pain: Pain is tolerable per patient Peripheral Nerve Block: Regional nerve block not resolved at time of post operative discharge
== END 2023-04-18 13:34 | disposition home or self-care (01) ==
PROVIDERS: PCP Physician Assistant; Visit Provider Surgery
PROC: (CPT 49591; principal; 2023-04-18 07:30)
DX: K40.90 Unilateral inguinal hernia, without obstruction or gangrene, not specified as recurrent; K42.9 Umbilical hernia without obstruction or gangrene; I10 Essential (primary) hypertension
CPT/HCPCS: 49591; 49505; 76942; C1781; J0171; J0690; J1100; J2001; J2250; J2405; J2704

== ENCOUNTER 2024-01-11 11:43 | Outpatient (CLI) | payer OTHER, SELFPAY ==
[2024-01-11 13:08] LABS: Anion Gap 10.8 mmol/L (3-11); BUN 11 mg/dL (7-18); CO2 26.2 mmol/L (21.0-32.0); Calcium 8.8 mg/dL (8.5-10.1); Calculated LDL 100 mg/dL (<100); Chloride 105 mmol/L (98-107); Cholesterol 182 mg/dL (<200); Estimated GFR 90.56 (mL/min/1.73m2); Glucose 105 mg/dL (74-106); HDL Cholesterol 48 mg/dL (40-60); Potassium 3.5 mmol/L (3.5-5.1); Sodium 142 mmol/L (136-145); Triglyceride 170 mg/dL (<150)
== END 2024-01-11 11:44 | disposition home or self-care (01) ==
LOC: LBO 11:44
PROVIDERS: PCP Physician Assistant; Visit Provider Physician Assistant
DX: I10 Essential (primary) hypertension (principal)
CPT/HCPCS: 36415; 80048; 80061

== ENCOUNTER 2024-11-26 12:37 | Emergency (ER) | payer OTHER, SELFPAY ==
[2024-11-26 12:45] VITALS: BP 166/94; PULSE 103; RESP 16; TEMP 36.9; O2SAT 95
[2024-11-26] MEDS: Diph,Pertuss(Acell),Tet Vac/Pf 0.5 ML SYR IM (16:01)
[2024-11-26] MEDS: Cephalexin 500 MG CAP PO (16:01)
--- NOTE | 2024-11-26 16:11 | W.ED.GENAD ---
Discharge Plan Disposition Patient Disposition: Home Condition: Stable Discharge Details Clinical Impression: Laceration of finger of right hand Primary Care Provider: Cholo Juárez ED Provider: Virginia Lopez Home Meds and New Rx's Prescriptions: New cephalexin 500 mg capsule 500 mg PO BID 7 Days Qty: 14 0RF Rx Instructions: Please take 1 capsule by mouth twice daily for the next 7 days No Action lisinopril 20 mg tablet 20 mg PO HS amlodipine 5 mg tablet 1 tab PO HS Patient Comments: TAKE ONE TABLET BY MOUTH EVERY DAY Discharge Instructions Instructions: Laceration Repair With Glue ED Additional Instructions: Please keep clean and dry for the next 12 to 24 hours. After 24 hours you may wash under running soap and water, do try to keep it as clean as possible and is dry as possible. Do not pick at or scrub the Dermabond or tissue adhesive. It will start to slough off on its own in approximately 4 to 6 days. Please take the antibiotic with yogurt or a probiotic twice daily for the next 7 days as directed. This is to treat for possible infection and to prevent infection. Please return to the ER be seen sooner for any signs of infection such as red streaks going up your hand, increased swelling, redness, drainage increased pain or concerns. Follow up with primary care provider in 3-5 days. Return to ED sooner if any worsening or concerns. Please take Tylenol or Ibuprofen with food every 4-6 hours as needed for pain and swelling. Thank you for allowing us to care for you today. Referrals: Cholo uJárez [Primary Care Provider, Medicine] - 1 week Referral Note: ER follow up wound re-check call for an appt Clinical Impression: Laceration of finger of right hand Discharge Data Discharge Date/Time-TO BE ENTERED AT DEPARTURE: 11/26/24 16:41 HPI General Mode of arrival: ambulatory. Date/Time Provider Initiated Documentation: 11/26/24 12:43. Limitations to Documentation: no limitations. Information obtained by: patient, RN notes reviewed and old records reviewed. HPI Narrative: 54-year-old male presents to the ER with a chief complaint of right pinky finger laceration. He reports that he was using a tub washer without a nozzle on the end with approximately 1800 PSI pressure of water when his finger got in front of the water stream. This happened around 12:00 noon. He reports that his finger was swollen initially, he does have small 0.5 laceration to the palmar side of the base of his fifth digit. Bleeding is controlled upon my initial exam. He does have full range of motion noted, distal sensation intact cap refill less than 2 seconds. Related Data Home Medications ?Medication ?Instructions ?Recorded ?Confirmed lisinopril 20 mg tablet 20 mg PO HS 01/17/22 11/26/24 amlodipine 5 mg tablet 1 tab PO HS 02/04/22 11/26/24 cephalexin 500 mg capsule 500 mg PO BID Finger laceration 7 11/26/24 days #14 caps Previous Rx's ?Medication ?Instructions ?Recorded cephalexin 500 mg capsule 500 mg PO BID Finger laceration 7 11/26/24 days #14 caps Allergies Allergy/AdvReac Type Severity Reaction Status Date / Time No Known Allergies Allergy Verified 11/26/24 12:48 General Stated Complaint: Laceration MEG: 4 Review of Systems All systems reviewed & are unremarkable except as noted in HPI and below Integumentary/Breasts Skin/Breast: Reports as per HPI and Reports wounds (5th right pinky laceration from a tub washer reports swelling resolved) Exam Extrem General: normal to inspection Right upper extremity: normal to inspection, full ROM, normal capillary refill and hand Details: laceration 5th digit palmar aspect proximal Details: irregular, involving subcutaneous tissue, with motor nerve function intact and with sensation intact; not actively bleeding and not with foreign body present Hand/finger images:  1. Approximately 0.5 mm irregular laceration, bleeding controlled Course Vital Signs Vital signs: Vital Signs Temperature 36.9 C 11/26/24 12:45 Pulse 103 H 11/26/24 12:45 Respiratory Rate 16 11/26/24 12:45 Blood Pressure 166/94 H 11/26/24 12:45 Pulse Oximetry 95 11/26/24 12:45 Temperature 36.9 C 11/26/24 12:45 Pulse 103 H 11/26/24 12:45 Respiratory Rate 16 11/26/24 12:45 Blood Pressure 166/94 H 11/26/24 12:45 Pulse Oximetry 95 11/26/24 12:45 Oxygen Delivery Method Room Air 11/26/24 12:45 Oxygen Flow Rate 0 11/26/24 12:45 Medical Decision Making 54-year-old male presents to the ER with a chief complaint of right pinky finger laceration. He reports that he was using a tub washer without a nozzle on the end with approximately 1800 PSI pressure of water when his finger got in front of the water stream. This happened around 12:00 noon. He reports that his finger was swollen initially, he does have small 0.5 laceration to the palmar side of the base of his fifth digit. Bleeding is controlled upon my initial exam. He does have full range of motion noted, distal sensation intact cap refill less than 2 seconds. At this time imaging deferred, due to full range of motion and distal sensation. Will apply Dermabond, clean with chlorhexidine and give patient a Tdap booster. Will place on cephalexin to treat empirically for infection. Will discussed and give strict return instructions, home care and follow-up care. Informed patient of plan of care and he is in agreement with the plan. Patient remained hemodynamically stable ambulatory throughout stay and upon discharge. This text was generated using [employer] dictation system, please disregard any oddities of phrase or misspellings. PFSH All Active Problems Laceration of finger of right hand (Acute) Hyperlipidemia (Acute) Lyme disease (Acute) Colorectal polyps (Acute) Hypertension (Chronic) Medical History History of colon polyps (~02/07/22) Low back pain Neck pain Hx of essential hypertension Surgical History History of colonoscopy (~2021) Inguinal hernia of left side without obstruction or gangrene Inguinal hernia of right side without obstruction or gangrene (~03/2023) Umbilical hernia (~03/2023) Family History Mother Stroke Father Emphysema lung Social History Smoking/Tobacco Use Status: Never Smoking risk assessment performed?: Yes Alcohol Intake: current Alcohol Intake frequency: 3 or more drinks per day Alcohol type: beer and hard liquor Drug use: Never Substance use type: does not use Housing: house Do you feel safe at home: Yes Do you feel safe in your relationship?: Yes
[2024-11-26 16:41] VITALS: BP 142/95; PULSE 78; RESP 16; TEMP 36.9; O2SAT 97
== END 2024-11-26 16:41 | disposition home or self-care (01) ==
PROVIDERS: Emergency Provider Registered Nurse Emergency; PCP Physician Assistant
DX: S61.216A Laceration without foreign body of right little finger without damage to nail, initial encounter (principal); I10 Essential (primary) hypertension; E78.5 Hyperlipidemia, unspecified; W45.8XXA Other foreign body or object entering through skin, initial encounter; Y93.89 Activity, other specified; Z23 Encounter for immunization
CPT/HCPCS: 12001; 90471; 90715; 99283

== ENCOUNTER 2025-01-30 04:04 | Outpatient (CLI) | payer OTHER, SELFPAY ==
[2025-01-30 08:05] LABS: ALT 33 U/L (16-63); AST 16 U/L (15-37); Albumin 3.7 g/dL (3.4-5.0); Alkaline Phosphatase 87 U/L (46-116); Anion Gap 10.5 mmol/L (3-11); BUN 11 mg/dL (7-18); Bilirubin, Total 0.3 mg/dL (0.2-1.0); CO2 26.5 mmol/L (21.0-32.0); Calcium 8.7 mg/dL (8.5-10.1); Calculated LDL 133 mg/dL (<100); Chloride 106 mmol/L (98-107); Cholesterol 200 mg/dL (<200); Estimated GFR 105.82 (mL/min/1.73m2); Glucose 110 mg/dL (74-106); HDL Cholesterol 43 mg/dL (>or=40); Potassium 3.7 mmol/L (3.5-5.1); Sodium 143 mmol/L (136-145); Total Protein 7.7 g/dL (6.4-8.2); Triglyceride 120 mg/dL (<150)
[2025-01-30 19:28] LABS: PSA, Screening 0.4 ng/mL (<=3.5)
== END 2025-01-30 04:05 | disposition home or self-care (01) ==
LOC: LBO 04:04
PROVIDERS: PCP Physician Assistant; Visit Provider Physician Assistant
DX: E78.5 Hyperlipidemia, unspecified (principal); Z12.5 Encounter for screening for malignant neoplasm of prostate
CPT/HCPCS: 36415; 80053; 80061; 84153